=== PATIENT | female | born 2000 | race African-American/Black ===

== ENCOUNTER 2024-02-11 16:15 | Emergency (ER) | payer SELFPAY ==
[~2024-02-11] VITALS: Ht 160 cm; Wt 66.0 kg
[2024-02-11 16:25] VITALS: O2SAT 99
[2024-02-11 17:53] LABS: CLARITY URINE CLOUDY (CLEAR); COLOR URINE DARK YELLOW (YELLOW); GLUCOSE URINE NEGATIVE (NEGATIVE); KETONES URINE TRACE (NEGATIVE); LEUKOCYTE ESTERASE URINE 2+ (NEGATIVE); NITRITE URINE NEGATIVE (NEGATIVE); OCCULT BLOOD URINE NEGATIVE (NEGATIVE); PROTEIN URINE TRACE (NEGATIVE); SPECIFIC GRAVITY URINE 1.032 (1.005-1.030)
[2024-02-11 18:29] LABS: BACTERIA URINE 3+; RBC URINE 0-2 /hpf (0-2); SQUAMOUS EPITHELIAL CELL URINE 2+ /lpf (RARE/1+)
[2024-02-11] MEDS: CEFTRIAXONE SODIUM 500MG VIAL IM ONE (21:30)
[2024-02-11] MEDS ORDERED: DOXY100T2 MT (22:10)
[2024-02-11] MEDS ORDERED: METR-167 MT (22:10)
[2024-02-11 22:35] VITALS: BP 127/74; PULSE 79; RESP 18; TEMP 98.2
[2024-02-14 04:10] LABS: CHLAMYDIA TRACHOMATIS NAA Positive (Negative); NEISSERIA GONORRHOEAE NAA Negative (Negative)
== END 2024-02-11 22:35 | disposition home or self-care (01) ==
LOC: ER 16:26
DX: N76.0 Acute vaginitis (principal); Z98.890 Other specified postprocedural states
CPT/HCPCS: 87491; 87591; 81003; 81025; 87210; 96372; 99284; J0696; Z7610